=== PATIENT | female | born 1975 | race Caucasian/White ===

== ENCOUNTER 2019-11-11 10:44 | Outpatient (CLI) | payer OTHER ==
[2019-11-11 11:06] LABS: BASOPHILS % (AUTO) 0.3 %; EOSINOPHILS # (AUTO) 0.1 10^3/uL (0.0-0.7); EOSINOPHILS % (AUTO) 1.1 %; HGB - HEMOGLOBIN 14.1 g/dL (12.0-16.0); LYMPHOCYTES # (AUTO) 1.7 10^3/uL (1.5-3.5); LYMPHOCYTES % (AUTO) 22.6 %; MEAN CORPUSCULAR HEMOGLOBIN 29.9 pg (27.0-31.0); MEAN CORPUSCULAR HGB CONC 33.2 g/dL (32.0-36.0); MEAN CORPUSCULAR VOLUME 90.2 fL (81.0-99.0); MEAN PLATELET VOLUME 10.4 fL (7.9-10.8); MONOCYTES # (AUTO) 0.7 10^3/uL (0.0-1.0); MONOCYTES % (AUTO) 8.8 %; NEUTROPHILS # (AUTO) 4.9 10^3/uL (1.5-6.6); NEUTROPHILS % (AUTO) 66.9 %; PLT - PLATELET COUNT 293 10^3/uL (130-450); RED BLOOD COUNT 4.71 10^6/uL (4.20-5.40); RED CELL DISTRIBUTION WIDTH 13.6 % (12.0-15.0); WHITE BLOOD COUNT 7.4 x10^3/uL (4.8-10.8)
[2019-11-11 11:17] LABS: ALBUMIN 4.4 g/dL (3.2-5.5); ALBUMIN/GLOBULIN RATIO 1.6 (1.0-2.2); BILIRUBIN,TOTAL 1.4 mg/dL (0.2-1.0); CREATININE 0.7 mg/dL (0.4-1.0); TOTAL PROTEIN 7.1 g/dL (6.7-8.2)
== END 2019-11-11 10:45 | disposition home or self-care (01) ==
LOC: LAB 10:44
PROVIDERS: ATTEND Physician Assistant Medical
DX: Z51.81 Encounter for therapeutic drug level monitoring (principal); Z79.899 Other long term (current) drug therapy
CPT/HCPCS: 36415; 80053; 85025

== ENCOUNTER 2019-12-20 10:46 | Outpatient (CLI) | payer OTHER | END 2019-12-20 10:47 | disposition home or self-care (01) | LOC: DI 10:46 | PROVIDERS: ATTEND Physician Assistant Medical | DX: Z12.31 Encounter for screening mammogram for malignant neoplasm of breast (principal) | CPT/HCPCS: 77063; 77067 ==

== ENCOUNTER 2020-05-27 14:02 | Outpatient (CLI) | payer OTHER ==
[2020-05-27 20:57] LABS: ALBUMIN 4.3 g/dL (3.2-5.5); ALBUMIN/GLOBULIN RATIO 1.5 (1.0-2.2); ALKALINE PHOSPHATASE 73 IU/L (42-121); ALT ALANINE AMINOTRANSFERASE 12 IU/L (10-60); AST ASPARTATE AMINOTRANSFERASE 15 IU/L (10-42); BILIRUBIN,TOTAL 0.7 mg/dL (0.2-1.0); BUN - BLOOD UREA NITROGEN 15 mg/dL (6-20); CARBON DIOXIDE - CO2 25 mmol/L (21-32); CHLORIDE 103 mmol/L (101-111); CREATININE 0.7 mg/dL (0.4-1.0); GLUCOSE 123 mg/dL (70-100); SODIUM 140 mmol/L (135-145); TOTAL PROTEIN 7.2 g/dL (6.7-8.2)
[2020-05-27 21:11] LABS: CRP - C-REACTIVE PROTEIN < 1.0 mg/dL (0-1.0)
== END 2020-05-27 14:03 | disposition home or self-care (01) ==
LOC: LAB.S 14:02
PROVIDERS: ATTEND Registered Nurse
DX: Z86.79 Personal history of other diseases of the circulatory system (principal)
CPT/HCPCS: 36415; 80053; 86140

== ENCOUNTER 2021-01-21 08:00 | Outpatient (CLI) | payer OTHER ==
--- NOTE | 2021-01-21 14:46 | XRAY Report ---
PROCEDURE: Hand 3 View LT INDICATIONS: CONTUSION OF LEFT HAND TECHNIQUE: 3 views of the hand(s) acquired. COMPARISON: None FINDINGS: Bones: No fractures or dislocations. No suspicious bony lesions. Soft tissues: No suspicious soft tissue calcifications. IMPRESSION: Intact left hand. Reviewed by: Lexis Rosen MD on 01/21/2021 2:45 PM PDT Approved by: Lexis Rosen MD on 01/21/2021 2:45 PM PDT Station ID: [id number]
== END 2021-01-21 23:59 | disposition home or self-care (01) ==
LOC: DI.S 08:00
PROVIDERS: ATTEND Emergency Medicine
DX: S60.222A Contusion of left hand, initial encounter (principal)

== ENCOUNTER 2021-10-04 09:38 | Outpatient (CLI) | payer OTHER ==
--- NOTE | 2021-10-05 10:25 | Mammography Report ---
BILATERAL DIGITAL SCREENING MAMMOGRAM 3D/2D WITH EXAGGERATED CC: 10/04/2021 CLINICAL: Routine screening. Comparison is made to exams dated: 12/20/2019 mammogram, 11/05/2018 mammogram, 11/02/2017 mammogram, 03/2017 mammogram, and 04/29/2016 mammogram - [facility]. The tissue of both breast s is heterogeneously dense. This may lower the sensitivity of mammography. Left breast scar marker. No significant masses, calcifications, or other findings are seen in either breast. There has been no significant interval change. IMPRESSION: BENIGN There is no mammographic evidence of malignancy. A 1 year screening mammogram is recommended. This exam was interpreted at Station ID: [id number]. NOTE: For mammograms, a report in lay terms will be sent to the patient. Approximately 15% of breast malignancies will not be visualized mammographically. In the management of a palpable breast mass, a negative mammogram must not discourage biopsy of a clinically suspicious lesion. Electronically Signed By: Cheng Stokes M.D. slc/:10/05/2021 08:56:38 ACR BI-RADS Category 2: Benign Finding(s) 3342F PARENCHYMAL PATTERN: (D) - The breast(s) demonstrate(s) heterogeneously dense fibroglandular bijan power. BI-RADS CATEGORY: (2) - 2 RECOMMENDATION: (ANNUAL) - Recommend routine annual screening mammography. [id number] 1 year screening LATERALITY: (B)
== END 2021-10-04 09:39 | disposition home or self-care (01) ==
LOC: DI.S 09:38
PROVIDERS: ATTEND Family Medicine
DX: Z12.31 Encounter for screening mammogram for malignant neoplasm of breast (principal)

== ENCOUNTER 2022-07-01 14:16 | Outpatient (CLI) | payer OTHER | END 2022-07-01 14:17 | disposition short-term general hospital (02) | LOC: EMS 14:16 | DX: R07.89 Other chest pain (principal); I44.7 Left bundle-branch block, unspecified; R11.0 Nausea; R42 Dizziness and giddiness; G43.109 Migraine with aura, not intractable, without status migrainosus; R53.1 Weakness | CPT/HCPCS: A0425; A0427 ==

== ENCOUNTER 2023-03-29 07:43 | Outpatient (CLI) | payer OTHER ==
--- NOTE | 2023-03-29 13:23 | Mammography Report ---
BILATERAL DIGITAL DIAGNOSTIC MAMMOGRAM 3D/2D: 03/29/2023 CLINICAL: Palpable right breast lump and discharge. Due for Bilateral. Comparison is made to exams dated: 10/04/2021 mammogram, 12/20/2019 mammogram, 11/05/2018 mammogram, 03/2018 mammogram, 11/02/2016 mammogram, and 04/29/2016 mammogram - [facility]. Both breasts are heterogeneously dense, which may obscure small masses (category c / 51-75% glandular tissue). No significant masses, calcifications, or other findings are seen in either breast. IMPRESSION: NEGATIVE There is no abnormality seen in the right breast to correspond with the now resolved areas of clinica l concern to include physiologic non-bloody discharge from the nipple, however, recommend clinical fo llow up for recurrent or worsening symptoms, or development of any clinically suspicious findings. There is no mammographic evidence of malignancy. A 1 year screening mammogram is recommended. Findings and recommendations were conveyed to the patient during today's evaluation. Based on the Tyrer Cuzick model (a risk assessment model) the patients lifetime risk is 9.7% and her 10 year risk is 1.9%. According to the ACR, ACS, and NCCN guidelines, an annual breast MRI exam hernan g with mammogram is recommended if the patients lifetime risk is 20% or greater. This exam was interpreted at Station ID: [id number]. NOTE: For mammograms, a report in lay terms will be sent to the patient. Approximately 15% of breast malignancies will not be visualized mammographically. In the management of a palpable breast mass, a negative mammogram must not discourage biopsy of a clinically suspicious lesion. Electronically Signed By: Emanuel Cerda M.D. aty/:03/29/2023 08:37:05 ACR BI-RADS Category 1: Negative 3341F PARENCHYMAL PATTERN: (D) - The breast(s) demonstrate(s) heterogeneously dense fibroglandular pargiovanniy ma. BI-RADS CATEGORY: (1) - 1 Mammogram [id number] 1 year screening LATERALITY: (B)
== END 2023-03-29 07:44 | disposition home or self-care (01) ==
LOC: DI 07:43
PROVIDERS: ATTEND Internal Medicine
DX: N63.10 Unspecified lump in the right breast, unspecified quadrant (principal); N64.52 Nipple discharge

== ENCOUNTER 2023-09-05 16:35 | Emergency (ER) | payer OTHER ==
[2023-09-05 17:32] LABS: BASOPHILS % (AUTO) 0.2 %; EOSINOPHILS # (AUTO) 0.1 10^3/uL (0.0-0.7); EOSINOPHILS % (AUTO) 0.6 %; HCT - HEMATOCRIT 42.8 % (37.0-47.0); HGB - HEMOGLOBIN 14.1 g/dL (12.0-16.0); LYMPHOCYTES # (AUTO) 1.8 10^3/uL (1.5-3.5); LYMPHOCYTES % (AUTO) 13.3 %; MEAN CORPUSCULAR HGB CONC 32.9 g/dL (32.0-36.0); MEAN CORPUSCULAR VOLUME 91.1 fL (81.0-99.0); MEAN PLATELET VOLUME 10.3 fL (7.9-10.8); MONOCYTES # (AUTO) 0.8 10^3/uL (0.0-1.0); MONOCYTES % (AUTO) 6.3 %; NEUTROPHILS # (AUTO) 10.5 10^3/uL (1.5-6.6); NEUTROPHILS % (AUTO) 79.2 %; PLT - PLATELET COUNT 381 10^3/uL (130-450); RED CELL DISTRIBUTION WIDTH 13.8 % (12.0-15.0); WHITE BLOOD COUNT 13.3 x10^3/uL (4.8-10.8)
--- NOTE | 2023-09-05 17:36 | ED Physician Documentation ---
History of Present Illness - Stated complaint Stated Complaint: FALL/HEAD/BACK PX - Chief complaint Chief Complaint: Neuro - Additonal information Additional information: 48-year-old female presents emergency department for upper back and head pain after falling down 3 stairs. Patient says that she was having chest pain she was walking down her stairs to go get her sublingual nitroglycerin missed a step and slipped and fell down 3 stairs hitting the back of her head and the upper portion of her back. She had no loss of consciousness she does have mild nausea no amnesia no seizure-like activity and she is not on any blood thinners. PD PAST MEDICAL HISTORY - Past Medical History Past Medical History: Yes Cardiovascular: Other Neuro: Migraines Other Past Medical History: pericarditis - Past Surgical History Past Surgical History: Yes General: Cholecystectomy Ortho: Hip replacement Cardiovascular: Angioplasty - Present Medications Home Medications: Ambulatory Orders Medication Instructions Recorded Confirmed Budesonide/Formoterol Fumarate 10.2 gm IH PRN PRN 09/05/23 09/05/23 [Symbicort 160-4.5 Mcg Inhaler] Eletriptan HBr [Relpax] 40 mg PO PRN PRN 09/05/23 09/05/23 Erenumab-Aooe [Aimovig 70 mg SQ ONCE 09/05/23 09/05/23 Autoinjector] Nitroglycerin [Nitrostat] 0.4 mg SL [id number] 09/05/23 09/05/23 amLODIPine [Norvasc] 5 mg PO DAILY 09/05/23 09/05/23 - Allergies Allergies/Adverse Reactions: Allergies Allergy/AdvReac Type Severity Reaction Status Date / Time Sulfa (Sulfonamide Allergy Hives Verified 09/05/23 17:09 Antibiotics) - Social History Does the pt smoke?: No Smoking Status: Never smoker Does the pt drink ETOH?: Yes Does the pt have substance abuse?: No - Immunizations Immunizations are current?: Yes PD ED PE NORMAL - Vitals Vital signs reviewed: Yes - General General: Alert and oriented X 3, No acute distress, Well developed/nourished - HEENT HEENT: PERRL, Moist mucous membranes, Other (posteria scalp hematoma, no abrasions or wounds) - Neck Neck: No bony TTP, C-Spine cleared by NEXUS criteria - Cardiac Cardiac: RRR, No murmur, No gallop, Strong equal pulses - Respiratory Respiratory: No respiratory distress, Clear bilaterally - Abdomen Abdomen: Normal bowel sounds, Soft, Non tender, Non distended, No organomegaly - Back Back: No spinal TTP - Derm Derm: Normal color, Warm and dry, No rash, Other (no brusiing or abrasions) - Extremities Extremities: No edema, No calf tenderness / cord - Neuro Neuro: Alert and oriented X 3, radar engineer 2-12 intact, No motor deficit, No sensory deficit, Normal speech Eye Opening: Spontaneous Motor: Obeys Commands Verbal: Oriented GCS Score: 15 - Psych Psych: Normal mood, Normal affect - Free text exam Free text exam: Neck and back are without deformity, external skin changes, or signs of trauma. Curvature of the cervical, thoracic, and lumbar spine are within normal limits. Bony features of the shoulders and hips are of equal height bilaterally. Posture is upright, gait is smooth, steady, and within normal limits. Left scapular tenderness with Abduction and adduction and with palpation No tenderness noted on palpation of the spinous processes. Spinous processes are midline. Cervical, thoracic, and lumbar paraspinal muscles are not tender and are without spasm. Discomfort with flexion No discomfort is noted with extension, and [id number] rotation of the cervical spine, full range of motion is noted. Full range of motion including flexion, extension, and [id number] rotation of the thoracic and lumbar spine are noted and without discomfort. No clonus is noted. Sales Agent Protective Service strength is normal bilaterally. Dorsi/plantar flexion is normal bilaterally. Results - Vitals Vitals: Vital Signs - 24 hr 09/05/23 09/05/23 09/05/23 16:42 19:40 21:41 Temperature 36.6 C Heart Rate 67 68 65 Respiratory 17 16 18 Rate Blood Pressure 145/77 H 111/71 139/82 H O2 Saturation 100 98 96 Oxygen O2 Source Room air - EKG (time done) 1809 EKG releavant findings:: EKG personally interpreted by author of this note. Relevant findings are: Rate: Rate (enter#) (55) Rhythm: Sinus bradycardia [place]: Normal Intervals: Normal GA QRS: LVH Ischemia: Normal ST segments Compare to prior EKG: Old EKG unavailable Computer interpretation: Agree with computer - Labs Labs: Laboratory Tests 09/05/23 09/05/23 17:22 17:22 WBC 13.3 H RBC 4.70 Hgb 14.1 Hct 42.8 MCV 91.1 MCH 30.0 MCHC 32.9 RDW 13.8 Plt Count 381 MPV 10.3 Neut # (Auto) 10.5 H Lymph # (Auto) 1.8 [place] # (Auto) 0.8 Eos # (Auto) 0.1 Baso # (Auto) 0.0 Absolute Nucleated RBC 0.00 Nucleated RBC % 0.0 Sodium 138 Potassium 4.1 Chloride 103 Carbon Dioxide 26 Anion Gap 9.0 BUN 14 Creatinine 0.7 Estimated GFR (MDRD) 90 Glucose 95 Calcium 9.5 Magnesium 1.8 Total Bilirubin 0.6 AST 12 ALT 9 L Alkaline Phosphatase 68 Troponin I High Sens 3.0 Total Protein 7.2 Albumin 4.8 Globulin 2.4 Albumin/Globulin Ratio 2.0 Lipase 14 - Rads (name of study) Thoracic spine without Relevant Findings:: Final report received, EMP independent interpretation of test, Other (No spinal fractures or acute subluxation.) Left scapula x-ray Relevant Findings:: Final report received, EMP independent interpretation of test, Other (No scapular fractures or other acute abnormalities.) PD Medical Decision Making - ED course ED course: 48-year-old female presents emergency department for back pain and left scapular pain after falling down 3 stairs. She is not any blood thinners she had no loss of consciousness according to Vincent[facility] head CT criteria she does not meet criteria for head CT shared decision-making was utilized to hold off on any brain imaging at this point in time. She was having quite a bit of thoracic spinal tenderness with palpation so we decided to go ahead and do a CT scan of her upper back which is benign we also did a scapular x-ray which is also benign. We have placed her in a splint to help with her left shoulder pain we gave her nausea meds, oxycodone, muscle relaxer and she still so that she was in quite a bit of pain. She is offered a prescription to take home for pain medications but she said that she wanted to just stick with Tylenol ibuprofen. For her chest pain we decided to go ahead and do a troponin, chest x-ray, EKG and all came back unremarkable given that her chest pain has been going on since this morning I do not believe that a delta troponin is warranted I have little to no concern of an NSTEMI at this point in time. Patient says that her chest pain is no longer there. At this point in time she is safe for discharge she is told to follow-up with her primary care provider for possible physical therapy referral and she was given strict ER return precautions all questions answered Departure - Departure Disposition: Home, Self Care Clinical Impression: Fall down stairs Qualifiers: Encounter type: initial encounter Qualified Code(s): W10.8XXA - Fall (on) (from) other stairs and steps, initial encounter Thoracic back pain Qualifiers: Chronicity: acute Back pain laterality: left Qualified Code(s): M54.6 - Pain in thoracic spine Condition: Good Instructions: ED Contusion Back Comments: thank you for trusting us with your care and for your patience. As we discussed make sure that you are staying on top of your pain with medications like Tylenol 1000 mg every 8 hours and Aleve 500 mg twice a day. Make sure that you are also applying 20 minutes of ice with 1 hour off multiple times throughout the day to areas of soreness and tenderness. I do believe that he will be experiencing increasing pain over the next 2 to 3 days make sure that you are stay moving and what ever capacity you are able to tolerate. You declined any pain medications or muscle relaxers at this time please call with your primary care provider if you change your mind or you are having difficulty dealing with your pain at home for possible physical therapy referral. Please come back to the emergency department if you are starting to develop any incontinence of urine or stool, severe pain at home, or any other concerning emergent symptoms. Wishing you a speedy recovery. Forms: PCP List Discharge Date/Time: 09/05/23 21:45
[2023-09-05] MEDS: tiZANidine 4 MG TABLET PO PRN (17:43)
[2023-09-05] MEDS: ACETAMINOPHEN 325 MG TABLET PO STA (17:43)
[2023-09-05] MEDS: oxyCODONE 5 MG TABLET PO STA (17:43)
[2023-09-05] MEDS: ONDANSETRON ODT 4 MG TABLET TL STA ×2 (17:46→20:08)
[2023-09-05 18:01] LABS: MAGNESIUM 1.8 mg/dL (1.7-2.3)
[2023-09-05 18:07] LABS: ALBUMIN 4.8 g/dL (3.2-5.5); BILIRUBIN,TOTAL 0.6 mg/dL (0.2-1.0); CALCIUM 9.5 mg/dL (8.5-10.3); CREATININE 0.7 mg/dL (0.6-1.3); POTASSIUM 4.1 mmol/L (3.5-4.5); TOTAL PROTEIN 7.2 g/dL (6.4-8.9)
--- NOTE | 2023-09-05 19:03 | CT Report ---
PROCEDURE: Thoracic Spine WO INDICATIONS: fall downstairs, right scapular pain TECHNIQUE: Noncontrast 3 mm thick sections acquired through the region of interest in the thoracic spine. Sagit jaspal and coronal reformats were then constructed. For radiation dose reduction, the following was used : automated exposure control, adjustment of mA and/or kV according to patient size. COMPARISON: None. FINDINGS: Image quality: Excellent. The right scapula was incompletely imaged on this exam. Bones: Mild anterior degenerative changes with slight sclerosis at the T5-6 level. There is normal o verall bony alignment. No acute vertebral body compression fractures. No suspicious sclerotic or ly tic bony lesions. Central spinal canal is of normal overall caliber. Soft tissues: No paravertebral masses or hematomas. Visualized posteromedial lungs appear clear. IMPRESSION: No thoracic vertebral body fractures or acute subluxation. Right scapula was not completely imaged on this exam. Reviewed by: Lexis Rosen MD on 09/05/2023 7:02 PM PDT Approved by: Lexis Rosen MD on 09/05/2023 7:02 PM PDT Station ID: [id number]
--- NOTE | 2023-09-05 21:29 | XRAY Report ---
PROCEDURE: Scapula 2V LT INDICATIONS: left scapular pain TECHNIQUE: 2 views of the scapula were acquired. COMPARISON: None. FINDINGS: Bones: No acute fractures or dislocations. No suspicious bony lesions. Visualized ribs appear inta ct. Moderate acromioclavicular joint osteoarthrosis Soft tissues: Overlying soft tissues appear normal. IMPRESSION: No acute osseous abnormality. If there is clinical concern or persistent symptoms, additional imaging such as repeat radiographs or advanced imaging (e.g. CT, MRI) may be helpful for further evaluation. Reviewed by: Topher Reinoso MD on 09/05/2023 9:28 PM PDT Approved by: Topher Reinoso MD on 09/05/2023 9:28 PM PDT Station ID: [id number]
[2023-09-05 21:43] VITALS: BP 139/82; O2SAT 96
== END 2023-09-05 21:45 | disposition home or self-care (01) ==
LOC: ED 16:35
DX: S00.03XA Contusion of scalp, initial encounter (principal); M54.6 Pain in thoracic spine; W10.8XXA Fall (on) (from) other stairs and steps, initial encounter; Y92.008 Other place in unspecified non-institutional (private) residence as the place of occurrence of the external cause
CPT/HCPCS: 36415; 72128; 73010; 80053; 83690; 83735; 84484; 85025; 93005; 99284; A9270; Q0162

== ENCOUNTER 2023-09-15 19:22 | Emergency (ER) | payer OTHER ==
--- NOTE | 2023-09-15 19:45 | ED Physician Documentation ---
PD HPI HEAD INJURY - Stated complaint Stated Complaint: KOTHARI - Chief complaint Chief Complaint: Neuro - History obtained from History obtained from: Patient - Additional information Additional information: 48-year-old woman with history of migraines fell about 10 days ago and hit the back of her head. She declined imaging at the time but now has worsening headaches with nausea but no vomiting. She feels it is different than her migraine. The headache is now severe. PD PAST MEDICAL HISTORY - Past Medical History Past Medical History: Yes Cardiovascular: Other Neuro: Migraines Psych: Depression, Anxiety, Post traumatic stress disorder Other Past Medical History: Atypical CP - Past Surgical History Past Surgical History: Yes General: Cholecystectomy Ortho: Hip replacement Cardiovascular: Angioplasty - Present Medications Home Medications: Ambulatory Orders Medication Instructions Recorded Confirmed Budesonide/Formoterol Fumarate 10.2 gm IH PRN PRN 09/05/23 09/15/23 [Symbicort 160-4.5 Mcg Inhaler] Eletriptan HBr [Relpax] 40 mg PO PRN PRN 09/05/23 09/15/23 Erenumab-Aooe [Aimovig 70 mg SQ ONCE 09/05/23 09/15/23 Autoinjector] Nitroglycerin [Nitrostat] 0.4 mg SL [id number] 09/05/23 09/15/23 amLODIPine [Norvasc] 5 mg PO DAILY 09/05/23 09/15/23 - Allergies Allergies/Adverse Reactions: Allergies Allergy/AdvReac Type Severity Reaction Status Date / Time onabotulinumtoxinA Allergy Hives Verified 09/15/23 19:45 [From Botox] Sulfa (Sulfonamide Allergy Hives Verified 09/15/23 19:44 Antibiotics) - Social History Does the pt smoke?: No Smoking Status: Never smoker Does the pt drink ETOH?: Yes ETOH Use: Liquor Does the pt have substance abuse?: No - Immunizations Immunizations are current?: Yes - POLST Patient has POLST: No PD ED PE NORMAL - Vitals Vital signs reviewed: Yes - General General: Alert and oriented X 3 (She appears slightly uncomfortable) - HEENT HEENT: PERRL, EOMI - Neck Neck: Supple, no meningeal sign, No bony TTP - Neuro Neuro: Alert and oriented X 3, alumni relations manager 2-12 intact Eye Opening: Spontaneous Motor: Obeys Commands Verbal: Oriented GCS Score: 15 Results - Vitals Vitals: Vital Signs - 24 hr 09/15/23 19:25 Temperature 36.1 C L Heart Rate 73 Respiratory 16 Rate Blood Pressure 120/83 H O2 Saturation 100 Oxygen O2 Source Room air - Rads (name of study) CT head Relevant Findings:: Final report received, EMP independent interpretation of test PD Medical Decision Making - ED course ED course: She presents with severe headache after head injury. Pretest probability was fairly low for intracranial injury though given the time course. She requested CT imaging of the brain which was done and negative. She was feeling somewhat better after Imitrex injected here. Departure - Departure Disposition: Home, Self Care Clinical Impression: Headache Qualifiers: Headache type: unspecified Headache chronicity pattern: acute headache Intractability: not intractable Qualified Code(s): R51.9 - Headache, unspecified Condition: Good Record reviewed to determine appropriate education?: Yes Instructions: ED Cephalgia Unspecified Comments: CAT scan of your head was normal/negative. Call your doctor to arrange a follow-up appointment, make the next available appointment. In the interim, return anytime if worse or if new symptoms develop. Forms: PCP List
[2023-09-15] MEDS: SUMAtriptan 6 MG/0.5 ML VIAL SUBQ STA (19:51)
--- NOTE | 2023-09-15 20:35 | CT Report ---
PROCEDURE: Head WO INDICATIONS: head inj TECHNIQUE: Noncontrast 4.5 mm thick angled axial sections acquired from the foramen magnum to the vertex. For r adiation dose reduction, the following was used: automated exposure control, adjustment of mA and/or kV according to patient size. COMPARISON: None. FINDINGS: Image quality: Excellent. CSF spaces: Basal cisterns are patent. No extra-axial fluid collections. Ventricles are normal in size and shape. Brain: No midline shift. No intracranial masses or hemorrhage. Hanson-white matter interface is norm al. Skull and face: Calvarium and visualized facial bones are intact, without suspicious lesions. Sinuses: Left maxillary sinus mucous retention cyst. Visualized sinuses and mastoids are otherwise c lear. IMPRESSION: No acute intracranial pathology. Reviewed by: Mohit Swan MD on 09/15/2023 8:33 PM PDT Approved by: Mohit Swan MD on 09/15/2023 8:33 PM PDT Station ID: [id number]
[2023-09-15 20:54] VITALS: BP 140/61; O2SAT 98
== END 2023-09-15 20:50 | disposition home or self-care (01) ==
LOC: ED 19:22
DX: R51.9 Headache, unspecified (principal); R11.0 Nausea
CPT/HCPCS: 96372; 99283; 99284